=== PATIENT | male | born 2000 | race Caucasian/White ===

== ENCOUNTER 2024-03-24 04:53 | Emergency (ER) | payer MEDICAID, SELFPAY ==
--- NOTE | ~2024-03-24 | CT_ITS ---
EXAMINATION: CT abdomen pelvis w IV con CLINICAL INFORMATION: Reason for Exam Abdominal pain elevated WBC COMPARISON: No prior CT available for comparison. TECHNIQUE: Multidetector volumetric imaging was performed from the superior aspect of the liver through the pubic symphysis 85 mL of Omnipaque 350 injected Sagittal and coronal reformatted images were obtained on the technologist's workstation. This CT examination was performed using dose optimization techniques as appropriate, variously including the following: *Automated exposure control *Adjustment of mA and/or kV according to patient size (this includes techniques or standardized protocols for targeted exams where dose is matched to indication/reason for exam; i.e. extremities or head) *Use of iterative reconstruction technique DLP: 480 mGy-cm FINDINGS: LOWER THORAX: Included lung bases are clear. HEPATOBILIARY: No focal hepatic lesions. No biliary ductal dilatation. GALLBLADDER: Gallbladder unremarkable. SPLEEN: Spleen is normal in size. PANCREAS: No focal mass or ductal dilatation. STOMACH AND GASTROINTESTINAL TRACT: Stomach is grossly unremarkable. Circumferential wall thickening of the colon transverse and descending, sigmoid colon, nonspecific, could be sequela of colitis due to IBD, inflammatory or infection, among others. No evidence of pericolic fat stranding. No CT evidence of appendicitis. ADRENALS: No adrenal nodules. KIDNEYS/URETERS: No hydronephrosis, stones or solid mass lesions. URINARY BLADDER: Partially decompressed. PELVIC VISCERA: Unremarkable PERITONEUM: No free air or fluid. LYMPH NODES: No lymphadenopathy. VASCULAR:Abdominal aorta normal in size, no aneurysm found. BONES, ABDOMINAL WALL AND SOFT TISSUES: Age-appropriate changes of the spine and skeletal system, no destructive osteolytic or osteosclerotic bone lesion found CT/CT abdomen pelvis w IV con IMPRESSION: 1. Circumferential wall thickening of the colon transverse and descending, sigmoid colon, nonspecific, could be sequela of mild colitis due to IBD, inflammatory or infection, among others. No evidence of pericolic fat stranding. 2. No free air or fluid.
[2024-03-24 04:58] VITALS: BP 134/80; PULSE 88; O2SAT 100
[2024-03-24 05:01] VITALS: BP 112/67; PULSE 97; RESP 17; TEMP 36.7; O2SAT 99; BMI 26.4
--- NOTE | 2024-03-24 05:32 | ED_ITS ---
HPI - Nausea/Vomiting/Diarrhea General Chief complaint: ETOH/Substance Use Stated complaint: VOMITING,IN [employer] PER EMS Time Seen by Provider: 03/24/24 05:29 Source: patient and police Mode of arrival: ambulatory Limitations: no limitations History of Present Illness ED Provider: marv SAUNDERS Narrative: Patient alcoholic comes here for vomiting after heavy drinking last drink was yesterday 11:00 been vomiting since then, did have similar episodes in the past, no fever no chills complaining of burning sensation in upper abdomen no urinary complaints last visit to the hospital was last year with similar complaints no diarrhea patient is in police custody Related Data Previous Rx's ?Medication ?Instructions ?Recorded omeprazole 40 mg capsule,delayed 40 mg PO DAILY #30 caps 03/24/24 release ondansetron 4 mg disintegrating 4 mg PO Q6-8H PRN nausea and 03/24/24 tablet vomiting #7 tabs Allergies Allergy/AdvReac Type Severity Reaction Status Date / Time No Known Allergies Allergy Verified 03/24/24 05:04 Review of Systems 2 Review of Systems: Yes all other systems are reviewed and are negative [facility] Social History Social History Smoked in Last 30 Days: Yes Do you have a plan to hurt others: No Plan Physical Exam 2 Vital Signs: Vital Signs: Last Vital Signs Temp 98.0 F 03/24/24 05:01 Pulse 73 03/24/24 05:45 Resp 18 03/24/24 05:45 BP 114/78 03/24/24 05:45 Pulse Ox 99 03/24/24 05:45 O2 Del Method Room Air 03/24/24 05:45 BMI result Body Mass Index 26.4 Appearance: Alert. Oriented X3. No acute distress. Eyes: PERRLA, No Nystagmus ENT: Pharynx normal. Oral Mucosa moist Neck: Normal inspection. Neck supple. CVS: Normal heart rate and rhythm. Pulses normal. Respiratory: No respiratory distress. Equal air entry bilateral, no wheezing/rales/rhonchi Abdomen: Soft and mild epigastric tenderness no rebound tenderness or guarding Bowel sounds are present, no mass palpable, no CVA tenderness Skin: Skin warm and dry. Normal skin color. Normal skin turgor. Extremities: No lower extremity edema. No calf tenderness Neuro: Oriented X 3. No motor deficit. No sensory deficit.No cerebellar signs , cranial nerves II-XII intact Medications Administered Generic Name Dose Route Start Last Admin Trade Name Freq PRN Reason Stop Dose Admin Sodium Chloride 1,000 mls @ 999 mls/hr 03/24/24 06:22 03/24/24 06:26 Ns IV 03/24/24 07:22 999 mls/hr .Q1H1M ONE Administration Discontinued Medications Generic Name Dose Route Start Last Admin Trade Name Freq PRN Reason Stop Dose Admin Famotidine 20 mg 03/24/24 05:32 03/24/24 05:41 Famotidine/Pf 20 Mg/2 Ml Vial IVPUSH 03/24/24 05:33 20 mg ONCE ONE Administration Sodium Chloride 1,000 mls @ 999 mls/hr 03/24/24 05:32 03/24/24 06:43 Ns IV 03/24/24 06:32 Infused .Q1H1M ONE Infusion Iohexol 85 ml 03/24/24 06:54 03/24/24 06:55 Iohexol 350 Mg/Ml 100 Ml Infus..Btl IV 03/24/24 06:55 85 ml ONCE ONE Administration Lorazepam 2 mg 03/24/24 05:32 03/24/24 05:41 Lorazepam 2 Mg/Ml Vial IVPUSH 03/24/24 05:33 2 mg ONCE ONE Administration Ondansetron HCl 4 mg 03/24/24 05:32 03/24/24 05:41 Ondansetron Hcl 4 Mg/2 Ml Vial IVPUSH 03/24/24 05:33 4 mg ONCE ONE Administration Medical Decision Making Medical Decision Making [facility] Narrative: Patient with vomiting after a will quadrant likely alcoholic gastritis lab workup showed elevated WBC count with left shift which is likely from leukemoid reaction from vomiting patient does not have any focal abdominal tenderness but as white counts are very elevated with significant bands will do CT scan patient is signed out Dr. Miller pending CT scan for disposition Differential Diagnosis Differential Diagnoses: The differential diagnosis associated with the presentation includes Alcoholic gastritis/pancreatitis/ Admission/Observation Consideration of admission/observation: Escalation of care including admission/observation considered Lab Data [facility] Lab Attestation statement: I reviewed the patient's lab results. 03/24/24 05:37 03/24/24 05:37 Labs: Lab Results 06/29/24 Range/Units 05:37 WBC 27.5 H (4.8-10.8) X10*3/uL RBC 5.04 (4.60-5.80) X10*6/uL Hgb 15.7 (14.0-18.0) g/dl Hct 43.9 (42.0-52.0) % MCV 87.1 (80.0-98.0) fL MCH 31.2 (27.0-33.0) pg MCHC 35.8 (31.0-36.0) g/dl RDW 13.2 (11.0-16.0) % Plt Count 258 (160-400) X10*3/uL MPV 10.1 (9.4-12.4) fL Immature Gran % (Auto) 1.0 H (0.0-0.4) % Neut % (Auto) 90.8 H (45-73) % Lymph % (Auto) 4.7 L (20-40) % [place] % (Auto) 3.3 (2-11) % Eos % (Auto) 0.0 (0-4) % Baso % (Auto) 0.2 (0-2) % Lymph # (Auto) 1.3 (1.2-4.9) X10*3/uL [place] # (Auto) 0.9 (0.1-1.2) X10*3/uL Eos # (Auto) 0.0 (0.0-0.4) X10*3/uL Baso # (Auto) 0.1 (0.0-0.2) X10*3/uL Abs Immat Gran (auto) 0.27 H (0.00-0.03) X10*3/uL Absolute Neuts (auto) 25.0 H (2.0-8.3) x10*3/uL Absolute Nucleated RBC 0.000 (0.0-0.012) X10*3/uL Nucleated RBC % (auto) 0.0 (0.0-0.2) /100WBC Smear Tech's Comments VERIFIED Sodium 146 H (135-145) mmol/L Potassium 4.6 (3.3-5.1) mmol/L Chloride 107 (96-108) mmol/L Carbon Dioxide 16 L (22-29) mmol/L Anion Gap 28 H (12-20) BUN 14 (9-16) mg/dL Creatinine 1.04 (0.5-1.4) mg/dL Estim Creat Clear Calc 101.5 Estimated GFR > 60 Random Glucose 89 (60-115) mg/dL Calcium 10.3 H (8.4-10.2) mg/dL Magnesium 1.7 (1.6-2.6) mg/dL Total Bilirubin 0.9 (0.0-1.0) mg/dL AST 29 (5-37) U/L ALT 29 (0-40) U/L Alkaline Phosphatase 60 (39-117) U/L Total Protein 7.5 (6.5-8.0) g/dL Albumin 5.0 (3.5-5.0) g/dL Lipase 5 L (8-78) U/L Ethyl Alcohol < 10 mg/dL Discharge Plan Discharge Clinical Impression: Acute alcoholic gastritis Patient Disposition: Still a Patient Instructions: Gastritis (DC), Abuse of Alcohol (ED) Additional Instructions: Stop drinking alcohol Medicine for nausea as prescribed Prescriptions: New ondansetron 4 mg tablet,disintegrating 4 mg PO Q6-8H PRN (Reason: nausea and vomiting) Qty: 7 0RF omeprazole 40 mg capsule,delayed release(DR/EC) 40 mg PO DAILY Qty: 30 0RF Print Language: [place]
[2024-03-24] MEDS: 0.9 % Sodium Chloride 1,000 ML 999 ML IV ×2 (05:41→06:26)
[2024-03-24] MEDS: Famotidine/PF 20 MG/2 ML VIAL IVPUSH (05:41)
[2024-03-24] MEDS: ondansetron HCL 4 MG/2 ML VIAL IVPUSH (05:41)
[2024-03-24] MEDS: LORazepam 2 MG/ML VIAL IVPUSH (05:41)
[2024-03-24 05:42] LABS: Basophils Absolute Auto 0.1 X10*3/uL (0.0-0.2); Basophils Percent Auto 0.2 % (0-2); Hematocrit 43.9 % (42.0-52.0); Hemoglobin 15.7 g/dl (14.0-18.0); Imm Gran Abs Auto 0.27 X10*3/uL (0.00-0.03); Lymphocytes Absolute Auto 1.3 X10*3/uL (1.2-4.9); Lymphocytes Percent Auto 4.7 % (20-40); Mean Corpuscular HGB Conc 35.8 g/dl (31.0-36.0); Mean Corpuscular Hemoglobin 31.2 pg (27.0-33.0); Mean Corpuscular Volume 87.1 fL (80.0-98.0); Mean Platelet Volume 10.1 fL (9.4-12.4); Monocytes Absolute Auto 0.9 X10*3/uL (0.1-1.2); Monocytes Percent Auto 3.3 % (2-11); Neutrophils Percent Auto 90.8 % (45-73); Platelet Count 258 X10*3/uL (160-400); Red Blood Count 5.04 X10*6/uL (4.60-5.80); Red Cell Distribution Width 13.2 % (11.0-16.0); SCAN SMEAR FLAG 1; White Blood Count 27.5 X10*3/uL (4.8-10.8)
[2024-03-24 05:44] LABS: MANUAL DIFF FLAG SCAN
[2024-03-24 05:45] VITALS: BP 114/78; PULSE 73; RESP 18; O2SAT 99
[2024-03-24 06:04] LABS: Ethanol < 10 mg/dL
[2024-03-24 06:07] LABS: SLIDE REVIEW VERIFIED
[2024-03-24 06:13] LABS: Alanine Aminotransferase 29 U/L (0-40); Alkaline Phosphatase 60 U/L (39-117); Anion Gap 28 (12-20); Aspartate Amino Transferase 29 U/L (5-37); Bilirubin Total 0.9 mg/dL (0.0-1.0); Blood Urea Nitrogen 14 mg/dL (9-16); Calcium 10.3 mg/dL (8.4-10.2); Carbon Dioxide 16 mmol/L (22-29); Chloride 107 mmol/L (96-108); Creatinine Clr Calc Pharmacy 101.5; Estimated Glomerular Filt Rate > 60; Glucose Random 89 mg/dL (60-115); Lipase 5 U/L (8-78); Magnesium 1.7 mg/dL (1.6-2.6); Potassium 4.6 mmol/L (3.3-5.1); Sodium 146 mmol/L (135-145); Total Protein 7.5 g/dL (6.5-8.0)
[2024-03-24] MEDS: iohexoL 350 MG/ML 100 ML INFUS..BTL 85 ML IV (06:55)
--- NOTE | 2024-03-24 07:03 | PC.NURSE ---
report recieved from previous RN, patient returned from CT, resting comfortably on stretcher at this time, offering no complaints at this time to this RN. Fluids running through PIV. lights dimmed for comfort, provided with water. awaiting CT results at this time
[2024-03-24 07:59] VITALS: BP 114/78; PULSE 73; RESP 18; TEMP 37.1
== END 2024-03-24 08:14 ==
PROVIDERS: Emergency Provider Internal Medicine
DX: K29.20 Alcoholic gastritis without bleeding (principal); R11.10 Vomiting, unspecified; R10.13 Epigastric pain
CPT/HCPCS: 36415; 74177; 80053; 80307; 83690; 83735; 85025; 96361; 96374; 96375; 99284; J2060; J2405; Q9967